=== PATIENT | male | born 1975 | race Caucasian/White ===

== ENCOUNTER 2022-04-03 16:39 | Emergency (ER) | payer MEDICAID ==
[~2022-04-03] VITALS: Ht 175.3 cm; Wt 95.5 kg
[2022-04-03] MEDS ORDERED: HYDROCODONE/ACETAMINOPHEN 5-325 MG TABLET PO ONE (17:00)
[2022-04-03] MEDS ORDERED: GABA-1181 PO (20:14)
[2022-04-03 20:40] VITALS: BP 135/87
== END 2022-04-03 20:44 | disposition home or self-care (01) ==
LOC: EMS 16:39
DX: S42.212A Unspecified displaced fracture of surgical neck of left humerus, initial encounter for closed fracture (principal); E11.9 Type 2 diabetes mellitus without complications; W19.XXXA Unspecified fall, initial encounter; Y93.89 Activity, other specified; Y92.89 Other specified places as the place of occurrence of the external cause; Y99.8 Other external cause status
CPT/HCPCS: 29105; 71101; 99284; 73030-TC; 73060-TC; 73110-TC; Z7502; Z7610